=== PATIENT | female | born 1950 | race Caucasian/White ===

== ENCOUNTER 2017-12-29 09:23 | Emergency (ER) | payer BC ==
[2017-12-29 09:43] VITALS: BP 125/69
--- NOTE | 2017-12-29 09:57 | UC ---
Knee Pain HPI - HPI Summary HPI Summary: 67 yo female fell on both knees yesterday was cleaning deck removed step and forgot about in mistepped and fell R>>L knee pain also midl bilateral wrist and hand pain mild LBP declines analgesic - History of Current Complaint Chief Complaint: UCLowerExtremity Stated Complaint: KNEE INJURY Time Seen by Provider: 12/29/17 09:31 Hx Obtained From: Patient Onset/Duration: Sudden Onset Severity Initially: Moderate Severity Currently: Severe Pain Intensity: 8 - with wt bearing Pain Scale Used: 0-10 Numeric Character: Aching, Throbbing Aggravating Factor(s): Movement, Weight Bearing Alleviating Factor(s): Rest Associated Signs And Symptoms: Positive: Swelling - Allergies/Home Medications Allergies/Adverse Reactions: Allergies Allergy/AdvReac Type Severity Reaction Status Date / Time latex Allergy Blisters Verified 12/29/17 09:43 Environmental Allergies Allergy Intermediate Difficulty Uncoded 12/29/17 09:43 Breathing/Wheezing Seasonal Allergies Allergy Intermediate Difficulty Uncoded 12/29/17 09:43 Breathing/Wheezing BANDAIDS/TAPE Allergy Blisters Uncoded 12/29/17 09:43 Home Medications: Home Medications Biotin/Calcium Carbonate [Biotin 800 Mcg Tablet] 1 tab PO DAILY 12/29/17 [ History Confirmed 12/29/17] Mometasone 220 MCG MDI * [Asmanex 220 MCG MDI *] 2 puff INH DAILY 12/29/17 [ History Confirmed 12/29/17] PMH/Surg Hx/FS Hx/Imm Hx Previously Healthy: Yes Endocrine History: Hypothyroidism Cardiovascular History: Hypertension Respiratory History: COPD - Surgical History Surgical History: Yes Surgery Procedure, Year, and Place: Shanta. Tube for drainage of glaucoma - Family History Known Family History: Positive: Cardiac Disease, Diabetes - Social History Alcohol Use: Weekly Alcohol Amount: States 7 beers a week Substance Use Type: None Smoking Status (MU): Former Smoker Type: Cigarettes Amount Used/How Often: 1PPD 5YRS Have You Smoked in the Last Year: No When Did the Patient Quit Smoking/Using Tobacco: 1973 - Immunization History Most Recent Tetanus Shot: UTD Review of Systems Constitutional: Negative Skin: Negative Eyes: Negative ENT: Negative Respiratory: Negative Cardiovascular: Negative Gastrointestinal: Negative Genitourinary: Negative Motor: Negative Neurovascular: Negative Musculoskeletal: Arthralgia, Other: - hands and wrists/FROM with no swelling or ecchymosis shoulders and hips FROM Neurological: Negative Psychological: Negative Is Patient Immunocompromised?: No All Other Systems Reviewed And Are Negative: Yes Physical Exam Triage Information Reviewed: Yes Appearance: Well-Appearing, No Pain Distress, Well-Nourished Vital Signs: Initial Vital Signs Temp 98.2 F 12/29/17 09:38 Pulse 75 12/29/17 09:38 Resp 18 12/29/17 09:38 BP 125/69 12/29/17 09:38 Pulse Ox 97 12/29/17 09:38 Vital Signs Reviewed: Yes Eyes: Positive: Conjunctiva Clear ENT: Positive: Hearing grossly normal. Negative: Nasal congestion, Nasal drainage, Trismus, Muffled voice, Hoarse voice Neck: Positive: Supple, Nontender, No Lymphadenopathy Respiratory: Positive: Lungs clear, Normal breath sounds Cardiovascular: Positive: RRR, No Murmur Musculoskeletal: Positive: Other: - see image Neurological: Positive: Alert Psychological Exam: Normal Skin Exam: Normal Diagnostics - Radiology No standard instances Xray Interpretation: No Acute Changes - right knee Radiology Interpretation Completed By: Radiologist Knee Pain Course/Dx - Differential Dx/Diagnosis Provider Diagnoses: knee contusion/sprain (Right) Discharge - Sign-Out/Discharge Documenting (check all that apply): Discharge/Admit/Transfer - Discharge Plan Condition: Critical Disposition: HOME Patient Education Materials: Knee Pain (ED), Knee Immobilizer (ED) Forms: *Work Release Referrals: Sara Thompson MD [Medical Doctor] - 1 Week (if not better) Additional Instructions: rest elevate ice tylenol - Billing Disposition and Condition Condition: CRITICAL Disposition: HOME Images Front/Back of Body, Lg ([place]): 1 - abrsasion 2 - tender and swollen medially. painful ROM. antalgic /stiff legged gait
--- NOTE | 2017-12-29 10:44 | RAD ---
HISTORY: Right knee injury COMPARISONS: None VIEWS: 4, Frontal, lateral, axial, and oblique views of the right knee FINDINGS: BONE DENSITY: Normal. BONES: There is no displaced fracture. JOINTS: There is no arthropathy. There is no suprapatellar joint effusion or lipohemarthrosis. ALIGNMENT: There is no dislocation. SOFT TISSUES: Unremarkable. OTHER FINDINGS: None. IMPRESSION: NO ACUTE OSSEOUS INJURY. IF SYMPTOMS PERSIST, RECOMMEND REPEAT IMAGING.
== END 2017-12-29 10:59 | disposition home or self-care (01) ==
LOC: UCEAST 09:23
DX: S80.01XA Contusion of right knee, initial encounter (principal); S83.91XA Sprain of unspecified site of right knee, initial encounter; W17.89XA Other fall from one level to another, initial encounter; Y93.E9 Activity, other interior property and clothing maintenance; Y92.008 Other place in unspecified non-institutional (private) residence as the place of occurrence of the external cause; E03.9 Hypothyroidism, unspecified; I10 Essential (primary) hypertension; J44.9 Chronic obstructive pulmonary disease, unspecified; Z87.891 Personal history of nicotine dependence
CPT/HCPCS: 99212; G0463

== ENCOUNTER 2018-06-20 08:00 | Emergency (ER) | payer BC ==
[2018-06-20 08:10] VITALS: BP 150/67
[2018-06-20] MEDS ORDERED: Ketorolac INJ* 60 MG/2 ML VIAL IM ONE (08:20)
--- NOTE | 2018-06-20 08:21 | UC ---
Back Pain HPI - HPI Summary HPI Summary: Pt c/o gradual onset of right low back pain that radiates posteriorly "down my leg" Pt c/o "feelings of numbness and burning" . pt has a hx of sciatica and states "I think I have sciatica again". Denies recent fall or other injury - History of Current Complaint Chief Complaint: UCLowerExtremity Stated Complaint: LEG PAIN Time Seen by Provider: 06/20/18 08:10 Hx Obtained From: Patient ?: No Onset/Duration: Gradual Onset, Lasting Days - 7, Still Present, Worse Since - initial onset Timing: Constant Severity Initially: Mild Severity Currently: Severe Pain Intensity: 10 Back Pain: Is Discrete @ - right low lateral back, Radiates To - posterior right legt to knee Character: Dull, Aching, Burning Aggravating Factor(s): Walking Alleviating Factor(s): Rest Associated Signs And Symptoms: Positive: Weakness, Numbness - Risk Factors AAA Risk Factors: Hypertension TAD Risk Factors: Hypertension Cauda Equina Risk Factors: Negative Epidural Abscess Risk Factors: Negative - Allergies/Home Medications Allergies/Adverse Reactions: Allergies Allergy/AdvReac Type Severity Reaction Status Date / Time latex Allergy Blisters Verified 06/20/18 08:10 Environmental Allergies Allergy Intermediate Difficulty Uncoded 06/20/18 08:10 Breathing/Wheezing Seasonal Allergies Allergy Intermediate Difficulty Uncoded 06/20/18 08:10 Breathing/Wheezing BANDAIDS/TAPE Allergy Blisters Uncoded 06/20/18 08:10 Home Medications: Home Medications Aspirin [Aspirin Childrens 81 MG] 81 mg PO DAILY 06/20/18 [History Confirmed ] PMH/Surg Hx/FS Hx/Imm Hx Previously Healthy: Yes Cardiovascular History: Hypertension - Surgical History Surgical History: Yes Surgery Procedure, Year, and Place: Cholecystectomy. Tube for drainage of glaucoma - Family History Known Family History: Positive: Cardiac Disease, Diabetes - Social History Occupation: Employed Full-time Lives: With Family Alcohol Use: Weekly Alcohol Amount: States 7 beers a week Substance Use Type: None Smoking Status (MU): Former Smoker Type: Cigarettes Amount Used/How Often: 1PPD 5YRS Have You Smoked in the Last Year: No When Did the Patient Quit Smoking/Using Tobacco: 1973 - Immunization History Most Recent Tetanus Shot: UTD Review of Systems Constitutional: Negative Skin: Negative Eyes: Negative ENT: Negative Respiratory: Negative Cardiovascular: Negative Gastrointestinal: Negative Genitourinary: Negative Motor: Decreased ROM - right lower extremity secondary to discomfort with ROm and weight bearing, Weakness Neurovascular: Negative Musculoskeletal: Arthralgia, Myalgia Neurological: Negative Psychological: Negative Is Patient Immunocompromised?: No All Other Systems Reviewed And Are Negative: Yes Physical Exam Triage Information Reviewed: Yes Appearance: Pain Distress Vital Signs: Initial Vital Signs Temp 97.1 F 06/20/18 08:05 Pulse 63 06/20/18 08:05 Resp 16 06/20/18 08:05 BP 150/67 06/20/18 08:05 Pulse Ox 98 06/20/18 08:05 Vital Signs Reviewed: Yes Eye Exam: Normal ENT: Positive: Hearing grossly normal Dental Exam: Normal Neck exam: Normal Respiratory: Positive: No respiratory distress Cardiovascular Exam: Normal Musculoskeletal Exam: Normal Musculoskeletal: Positive: Strength Intact, ROM Intact - c/o pain with ROM, c/o buring pain with weight bearing and point tenderness at right piriformis Neurological Exam: Normal Psychological Exam: Normal Skin Exam: Normal Back Pain Course/Dx - Differential Dx/Diagnosis Differential Diagnosis/HQI/PQRI: Strain, Sprain Provider Diagnoses: right side sciatica Discharge - Sign-Out/Discharge Documenting (check all that apply): Patient Departure All imaging exams completed and their final reports reviewed: No Studies - Discharge Plan Condition: Stable Disposition: HOME Prescriptions: predniSONE TAB* [Deltasone 20 MG TAB*] 20 mg PO DAILY #4 tab Patient Education Materials: Sciatica (ED), Lower Back Exercises (ED) Referrals: Marilee Mares [Primary Care Provider] - 5 Days - Billing Disposition and Condition Condition: STABLE Disposition: Home
== END 2018-06-20 08:47 | disposition home or self-care (01) ==
LOC: UCEAST 08:00
DX: M54.41 Lumbago with sciatica, right side (principal); J30.2 Other seasonal allergic rhinitis; I10 Essential (primary) hypertension; Z91.040 Latex allergy status; Z79.82 Long term (current) use of aspirin; Z87.891 Personal history of nicotine dependence; Z91.048 Other nonmedicinal substance allergy status
CPT/HCPCS: 96372; 99212; G0463; J1885